=== PATIENT | male | born 1985 | race Caucasian/White ===

== ENCOUNTER 2016-11-07 00:51 | Emergency (ER) | payer SELFPAY ==
[2016-11-07 01:01] VITALS: BP 110/70; PULSE 60; TEMP 98; BMI 19.8
--- NOTE | 2016-11-07 02:55 | PDOC ---
History of Present Illness <Ricardo Dial - Last Filed: 11/07/16 02:54> - General History Source: Patient Exam Limitations: No Limitations - History of Present Illness Initial Comments: 11/07/16 03:57 The patient is a 31-year-old male, with no significant past medical history, who presents to the ED with laceration to index finger of left hand. The patient was fixing his car when he cut his finger. 5-0 vicryl was used and 7 stitches were placed. Bacitracin was applied and finger was wrapped. Pt was advised to return in 10 days to get the stitches removed. Last tetanus shot was two years ago. The patient denies having any other injuries or symptoms. <Martha Woflf - Last Filed: 11/07/16 04:17> <Donald Arroyo - Last Filed: 11/07/16 04:31> - General Chief Complaint: Laceration Stated Complaint: LACERATION Time Seen by Provider: 11/07/16 02:54 Past History - Past Medical History Other medical history: Pt denies - Immunization History Immunization Up to Date: Yes - Psycho/Social/Smoking Cessation Hx Anxiety: No Suicidal Ideation: No Smoking History: Current every day smoker Have you smoked in the past 12 months: No Number of Cigarettes Smoked Daily: 5 Cigars Per Day: 0 Information on smoking cessation initiated: Yes Hx Alcohol Use: No Drug/Substance Use Hx: No Substance Use Type: None <Ricardo Dial - Last Filed: 11/07/16 02:54> <Martha Wolff - Last Filed: 11/07/16 04:17> <Donald Arroyo - Last Filed: 11/07/16 04:31> - Past Medical History Allergies/Adverse Reactions: Allergies Allergy/AdvReac Type Severity Reaction Status Date / Time No Known Allergies Allergy Verified 11/07/16 00:58 Home Medications: Ambulatory Orders Meclizine HCl [Antivert -] 25 mg PO TID #20 tablet 12/28/13 Review of Systems - Review of Systems Able to Perform ROS?: Yes Comments:: 11/07/16 03:57 GENERAL/CONSTITUTIONAL: No fever or chills. No weakness. HEAD, EYES, EARS, NOSE AND THROAT: No change in vision. No ear pain or discharge. No sore throat. CARDIOVASCULAR: No chest pain or shortness of breath. RESPIRATORY: No cough, wheezing, or hemoptysis. GASTROINTESTINAL: No nausea, vomiting, diarrhea or constipation. GENITOURINARY: No dysuria, frequency, or change in urination. MUSCULOSKELETAL: No joint or muscle swelling or pain. No neck or back pain. SKIN: +laceration to left index finger. NEUROLOGIC: No headache, vertigo, loss of consciousness, or change in strength/ sensation. ENDOCRINE: No increased thirst. No abnormal weight change. HEMATOLOGIC/LYMPHATIC: No anemia, easy bleeding, or history of blood clots. ALLERGIC/IMMUNOLOGIC: No hives or skin allergy. <Martha Wolff - Last Filed: 11/07/16 04:17> *Physical Exam - Vital Signs Last Vital Signs Temp Pulse Resp BP Pulse Ox 98.0 F 60 20 110/70 98 11/07/16 00:58 11/07/16 00:58 11/07/16 00:58 11/07/16 00:58 11/07/16 00:58 <Ricardo Dial - Last Filed: 11/07/16 02:54> - Vital Signs Last Vital Signs Temp Pulse Resp BP Pulse Ox 98.0 F 60 20 110/70 98 11/07/16 00:58 11/07/16 00:58 11/07/16 00:58 11/07/16 00:58 11/07/16 00:58 - Physical Exam Comments: 11/07/16 03:58 GENERAL/CONSTITUTIONAL: No fever or chills. No weakness. HEAD, EYES, EARS, NOSE AND THROAT: No change in vision. No ear pain or discharge. No sore throat. CARDIOVASCULAR: No chest pain or shortness of breath. RESPIRATORY: No cough, wheezing, or hemoptysis. GASTROINTESTINAL: No nausea, vomiting, diarrhea or constipation. GENITOURINARY: No dysuria, frequency, or change in urination. MUSCULOSKELETAL: No joint or muscle swelling or pain. No neck or back pain. SKIN: +oval-shaped laceration, 2 cm in diameter. Periphery of laceration is 42 cm. NEUROLOGIC: No headache, vertigo, loss of consciousness, or change in strength/ sensation. ENDOCRINE: No increased thirst. No abnormal weight change. HEMATOLOGIC/LYMPHATIC: No anemia, easy bleeding, or history of blood clots. ALLERGIC/IMMUNOLOGIC: No hives or skin allergy. <Martha Wolff - Last Filed: 11/07/16 04:17> - Vital Signs Last Vital Signs Temp Pulse Resp BP Pulse Ox 98.0 F 60 20 110/70 98 11/07/16 00:58 11/07/16 00:58 11/07/16 00:58 11/07/16 00:58 11/07/16 00:58 <Donald Arroyo - Last Filed: 11/07/16 04:31> Medical Decision Making - Medical Decision Making 11/07/16 04:15 Come back to Emergency Room or see PCP in 10 days for suture removal. <Martha Wolff - Last Filed: 11/07/16 04:17> *DC/Admit/Observation/Transfer - Attestations Physician Attestion: 11/07/16 02:55 I, Dr. Ricardo Dial, attest that this document has been prepared under my direction and personally reviewed by me in its entirety. I further attest, that it accurately reflects all work, treatment, procedures and medical decision -making performed by me. <Ricardo Dial - Last Filed: 11/07/16 02:54> - Attestations Scribe Attestion: 11/07/16 04:16 Documentation prepared by Martha Wolff, acting as medical receptionist medical assistant for Ricardo Dial MD. <Martha Wolff - Last Filed: 11/07/16 04:17> - Discharge Dispostion Admit: No <Donald Arroyo - Last Filed: 11/07/16 04:31> Diagnosis at time of Disposition: Laceration of index finger of left hand without complication - Patient Instructions Printed Discharge Instructions: DI for Laceration Repair -- Finger
== END 2016-11-07 04:28 | disposition home or self-care (01) ==
LOC: JER 00:51
PROC: 0HQGXZZ Repair Left Hand Skin, External Approach (ICD-10-PCS; principal; 2016-11-07)
DX: S61.211A Laceration without foreign body of left index finger without damage to nail, initial encounter (principal); F17.210 Nicotine dependence, cigarettes, uncomplicated
CPT/HCPCS: 99282-25

== ENCOUNTER 2018-10-27 15:50 | Emergency (ER) | payer SELFPAY ==
[2018-10-27 15:56] VITALS: BP 125/77; PULSE 75; TEMP 98; BMI 20.7
--- NOTE | 2018-10-27 16:29 | PDOC ---
History of Present Illness - General Chief Complaint: Injury Stated Complaint: FINGER CUT Time Seen by Provider: 10/27/18 15:52 - History of Present Illness Initial Comments: 10/27/18 16:24 33-year-old male without comorbidities presents for evaluation of a laceration on his left fifth finger. This laceration occurred while he was cutting steak at home. He is current on tetanus. He has no comorbidities. Past History - Past Medical History Allergies/Adverse Reactions: Allergies Allergy/AdvReac Type Severity Reaction Status Date / Time No Known Allergies Allergy Verified 10/27/18 15:56 Home Medications: Ambulatory Orders NK [No Known Home Medication] 10/27/18 COPD: No - Immunization History Immunization Up to Date: Yes - Suicide/Smoking/Psychosocial Hx Smoking History: Never smoked Have you smoked in the past 12 months: No Number of Cigarettes Smoked Daily: 5 Cigars Per Day: 0 Information on smoking cessation initiated: No Hx Alcohol Use: No Drug/Substance Use Hx: No Substance Use Type: None Review of Systems - Review of Systems Musculoskeletal: Yes: See HPI *Physical Exam - Vital Signs Last Vital Signs Temp Pulse Resp BP Pulse Ox 98 F 75 17 125/77 99 10/27/18 15:54 10/27/18 15:54 10/27/18 15:54 10/27/18 15:54 10/27/18 15:54 - Physical Exam Comments: 10/27/18 16:25 Left fifth finger skin color and temperature are normal. There is a 2 cm laceration on the volar aspect of the left fifth finger at the tip exposing subcutaneous fat. FDP and FDS S work independently no no gross sensory motor deficits. He is neurovascularly intact. Medical Decision Making - Medical Decision Making 10/27/18 16:26 6 mL of 1% lidocaine without epinephrine was used for digital block. This was tolerated well and done aseptically. The wound was export to its base in a bloodless field without identification of a foreign body. The wound was copiously irrigated with normal saline edges approximated with 5 interrupted single sutures of 5-0 Prolene dry sterile dressing was placed. This was tolerated well. *DC/Admit/Observation/Transfer Diagnosis at time of Disposition: Laceration of finger - Discharge Dispostion Disposition: HOME Condition at time of disposition: Stable Decision to Admit order: No - Referrals Referrals: Rick Rubin MD [Staff Physician] - - Patient Instructions Printed Discharge Instructions: DI for Laceration Repair, DI for Laceration Repair -- Simple Additional Instructions: Return to the emergency room for worsening symptoms. Please keep the dressing on for the next 48 hours. After 48 hours he may remove the dressing wash area with soap and water and leave it open to air cover the wound if you are working. He may use a Band-Aid to cover. Sutures out in 10 days. Return to the emergency room if there is any drainage redness swelling or increasing pain around the area of the wound. He may also follow-up with hand surgery in 1-2 days should he require further treatment. Again sutures out in 10 days and this can be done in the emergency room. Tylenol and Motrin as directed for pain. - Post Discharge Activity
== END 2018-10-27 16:30 | disposition home or self-care (01) ==
LOC: JERFT 15:50
PROC: 0HQGXZZ Repair Left Hand Skin, External Approach (ICD-10-PCS; principal; 2018-10-27)
DX: S61.217A Laceration without foreign body of left little finger without damage to nail, initial encounter (principal); W26.0XXA Contact with knife, initial encounter; Y93.G3 Activity, cooking and baking; Y92.009 Unspecified place in unspecified non-institutional (private) residence as the place of occurrence of the external cause
CPT/HCPCS: 99281-25